=== PATIENT | female | born 1940 | race Caucasian/White ===

== ENCOUNTER 2018-01-14 20:15 | Observation (INO) | payer MEDICARE, OTHER ==
[2018-01-14] MEDS ORDERED: Sodium Chloride 0.9% 10 ML Syringe FLUSH PRN (20:57)
[2018-01-14] MEDS ORDERED: Potassium Chloride 20 MEQ Tab.ER ONE (22:59)
[2018-01-14] MEDS: NS + KCl 20mEq/L 1,000 ML IV SCH (23:00)
--- NOTE | 2018-01-15 00:25 | EDM.PDOC ---
ED HPI GENERAL MEDICAL PROBLEM - General Chief Complaint: Neuro Symptoms/Deficits Stated Complaint: POSSIBLE STROKE Time Seen by Provider: 01/14/18 20:17 Source of Information: Reports: Patient, EMS History Limitations: Reports: No Limitations (At time of evaluation after Head CT she was back to normal mentation.) - History of Present Illness INITIAL COMMENTS - FREE TEXT/NARRATIVE: Patient is a 77 year old woman who was at her home at the [facility] outside of [place]. She was at a friend's house and she felt very hot, flushed and lightheaded and she nearly fainted. She was very weak and they helped her to a chair and called the ambulance to bring her to the ED for evaluation. At first she had some problems speaking and she feels this was from the weakness and lightheadedness. By the time she got to the ED she was doing better. She has never had any pain and she had generalized weakness and she is not sure if she completely fainted or not. She has no neurological deficits, though but she feels weak and she has no pain. She did not feel any palpitations. Onset Date: 01/14/18 Onset Time: 19:00 Duration: Hour(s): (1), Improving Location: Reports: Head, Generalized (Weakness and syncope or near syncope.) Quality: Reports: Other (Never has happened before. She does have low potassium and sodium that her doctor is watching.) Improves with: Reports: None Worsens with: Reports: None Context: Reports: Other (Was standing at her friend's house when this occured and friend helped her to chair and called ambulance.) Associated Symptoms: Reports: Weakness - Related Data Allergies Allergy/AdvReac Type Severity Reaction Status Date / Time cefuroxime [From Ceftin] Allergy Cannot Verified 01/14/18 21:14 Remember Home Meds: Home Meds Lisinopril/Hydrochlorothiazide [Lisinopril-Hctz 20-25 mg Tab] 1 each PO DAILY [History] Social & Family History - Tobacco Use Smoking Status *Q: Current Some Day Smoker Years of Tobacco use: 60 Packs/Tins Daily: 0.2 - Caffeine Use Caffeine Use: Reports: Coffee - Recreational Drug Use Recreational Drug Use: No ED ROS GENERAL - Review of Systems Review Of Systems: See Below Constitutional: Reports: Weakness, Other (She felt very flushed.) HEENT: Reports: No Symptoms Respiratory: Reports: No Symptoms Cardiovascular: Reports: No Symptoms Endocrine: Reports: No Symptoms GI/Abdominal: Reports: No Symptoms : Reports: No Symptoms Musculoskeletal: Reports: No Symptoms Skin: Reports: No Symptoms Neurological: Reports: Syncope, Tingling (She felt hot and had tingling in her legs.), Difficulty Walking, Weakness, Change in Speech Psychiatric: Reports: No Symptoms Hematologic/Lymphatic: Reports: No Symptoms Immunologic: Reports: No Symptoms - Physical Exam Exam: See Below Exam Limited By: No Limitations General Appearance: Alert, WD/WN, No Apparent Distress Eye Exam: Bilateral Eye: EOMI, Normal Fundi, Normal Inspection, PERRL Ears: Normal External Exam, Normal Canal, Hearing Grossly Normal, Normal TMs Nose: Normal Inspection, Normal Mucosa, No Blood Throat/Mouth: Normal Inspection, Normal Lips, Normal Teeth, Normal Gums, Normal Oropharynx, Normal Voice, No Airway Compromise Head Exam: Atraumatic, Normocephalic Neck: Normal Inspection, Supple, Non-Tender, Full Range of Motion Respiratory/Chest: No Respiratory Distress, Lungs Clear, Normal Breath Sounds, No Accessory Muscle Use, Chest Non-Tender Cardiovascular: Normal Peripheral Pulses, Regular Rate, Rhythm, No Edema, No Gallop, No JVD, No Murmur, No Rub GI/Abdominal: Normal Bowel Sounds, Soft, Non-Tender, No Organomegaly, No Distention, No Abnormal Bruit, No Mass Neuro Exam (Abbreviated): Alert, Oriented, CN II-XII Intact, Normal Cognition, Normal Gait, Normal Reflexes, No Motor/Sensory Deficits Back Exam: Normal Inspection, Full Range of Motion, NT Extremities: Normal Inspection, Normal Range of Motion, Non-Tender, No Pedal Edema, Normal Capillary Refill Psychiatric: Normal Affect, Normal Mood Skin Exam: Warm, Dry, Intact, Normal Color, No Rash EKG INTERPRETATION Rhythm: NSR Corinne: Normal P-Wave: Present QRS: Normal ST-T: Other (Nonspecific ST changes.) QT: Normal Comparison: NA - No Prior EKG Course - Vital Signs Text/Narrative:: Patient soon after getting back from Head CT was weak but was speaking normally and other than feeling weak was back to normal. Her labs showed a low sodium and potassium. Her Head CT was negative. She will be put in Observation on Telemetry to make sure she does not have another spell and to watch her heart rhythm for arrhythmias. She will have a BMP tomorrow and Dr. Posada will evaluate if a Doppler US of the Carotids and a 48 hour Holter Monitor should be done. Dr. Posada will round on her in the AM. Last Recorded V/S: Last Vital Signs Temp 36.6 C 01/14/18 23:29 Pulse 71 01/14/18 23:29 Resp 15 01/14/18 23:29 BP 155/52 H 01/14/18 23:29 Pulse Ox 100 01/14/18 23:29 - Orders/Labs/Meds Orders: Active Orders 24 hr Category Date Time Status CXR [Chest 1V Frontal] [CR] Stat Exams 01/14/18 20:57 Taken Head wo Cont [CT] Stat Exams 01/14/18 20:55 Taken Sodium Chloride 0.9% [Saline Flush] Med 01/14/18 20:57 Active 10 ml FLUSH ASDIRECTED PRN Saline Lock Insert [OM.PC] Routine Oth 01/14/18 20:57 Ordered Medication Orders Sodium Chloride (Saline Flush) 10 ml FLUSH ASDIRECTED PRN PRN Reason: Keep Vein Open Labs: Laboratory Tests 01/14/18 01/14/18 Range/Units 21:00 21:00 WBC 9.4 (4.0-11.0) K/uL RBC 3.77 L (3.80-5.80) M/uL Hgb 10.9 L (11.5-16.5) g/dL Hct 31.1 L (37.0-47.0) % MCV 83 (76-96) fL MCH 28.9 (27.0-32.0) pg MCHC 35.0 (31.0-35.0) g/dL RDW 14.2 (11.0-16.0) % Plt Count 369 (150-500) K/uL MPV 8.1 (6.0-10.0) fL Neut % (Auto) 57.5 (45.0-70.0) % Lymph % (Auto) 30.1 (20.0-40.0) % Yancey % (Auto) 11.1 H (3.0-10.0) % Eos % (Auto) 0.9 L (1.0-5.0) % Baso % (Auto) 0.4 (0.0-0.5) % Neut # (Auto) 5.38 (2.00-7.50) K/uL Lymph # (Auto) 2.82 (1.50-4.00) K/uL Yancey # (Auto) 1.04 H (0.20-0.80) K/uL Eos # (Auto) 0.08 (0.04-0.40) K/uL Baso # (Auto) 0.04 (0.02-0.10) K/uL Sodium 128 L (136-145) mmol/L Potassium 3.1 L (3.5-5.1) mmol/L Chloride 90 L (98-107) mmol/L Carbon Dioxide 23.7 (21.0-32.0) mmol/L Anion Gap 17.4 H (5.0-15.0) mmol/L BUN 12 (8-26) mg/dL Creatinine 0.58 (0.55-1.02) mg/dL Est Cr Clr Drug Dosing TNP Estimated GFR (MDRD) > 60 (>60) MLS/MIN BUN/Creatinine Ratio 20.7 (6-25) Glucose 115 H (74-100) mg/dL Calcium 8.6 (8.5-10.1) mg/dL Total Bilirubin 0.3 (0.0-1.0) mg/dL AST 25 (15-37) U/L ALT 25 (12-78) U/L Alkaline Phosphatase 79 (46-116) U/L Troponin I 0.002 (0.000-0.060) ng/mL Total Protein 6.8 (6.4-8.2) g/dL Albumin 3.8 (3.4-5.0) g/dL Globulin 3.0 (2.2-4.2) g/dL Albumin/Globulin Ratio 1.3 (0.8-2.0) Meds: Medications Generic Name Dose Route Start Last Admin Trade Name Freq PRN Reason Stop Dose Admin Sodium Chloride 10 ml 01/14/18 20:57 Saline Flush FLUSH ASDIRECTED PRN Keep Vein Open Discontinued Medications Generic Name Dose Route Start Last Admin Trade Name Freq PRN Reason Stop Dose Admin Potassium Chloride Confirm 01/14/18 22:59 01/14/18 23:00 Klor-Con M20 Administered 01/14/18 23:00 20 meq Dose Administration 20 meq .ROUTE .STK-MED ONE Departure - Departure Time of Disposition: 22:25 Disposition: Refer to Observation Condition: Fair Clinical Impression: Syncope and collapse - Discharge Information - My Orders Last 24 Hours: My Active Orders 01/14/18 20:55 Head wo Cont [CT] Stat 01/14/18 20:57 CXR [Chest 1V Frontal] [CR] Stat Sodium Chloride 0.9% [Saline Flush] 10 ml FLUSH ASDIRECTED PRN Saline Lock Insert [OM.PC] Routine - Assessment/Plan Last 24 Hours: My Active Orders 01/14/18 20:55 Head wo Cont [CT] Stat 01/14/18 20:57 CXR [Chest 1V Frontal] [CR] Stat Sodium Chloride 0.9% [Saline Flush] 10 ml FLUSH ASDIRECTED PRN Saline Lock Insert [OM.PC] Routine
[2018-01-15] MEDS: NS + KCl 20mEq/L 1,000 ML IV SCH (06:47)
--- NOTE | 2018-01-15 07:15 | CT ---
DATE OF SERVICE: 01/14/18 CLINICAL DATA: Syncope and collapse. UNENHANCED BRAIN CT: Multislice acquisition through the brain without IV contrast was performed. No priors. There is diffuse cerebral atrophy. No masses or mass effect. No intracranial hemorrhage. No evidence of acute or subacute infarct. No osseous abnormalities. IMPRESSION: No acute intracranial abnormalities. [id number] [facility]
--- NOTE | 2018-01-15 07:19 | CR ---
DATE OF SERVICE: 01/14/18 CLINICAL DATA: Syncope and collapse. AP PORTABLE CHEST: No priors. The heart size is normal. There is calcification of the aortic arch. The lungs are clear. No evidence of acute intrathoracic disease. [id number] [facility]
[2018-01-15] MEDS ORDERED: HCTZ PO SCH (08:00)
[2018-01-15] MEDS ORDERED: Hydrochlorothiazide 25 MG Tab PO SCH (08:00)
[2018-01-15] MEDS ORDERED: LISINOPRIL PO SCH (08:00)
[2018-01-15] MEDS ORDERED: Lisinopril 20 MG Tab PO SCH (08:00)
--- NOTE | 2018-01-15 15:29 | PCM.DCSUM1 ---
Discharge Summary - Discharge Data Discharge Date: 01/15/18 Discharge Disposition: Home, Self-Care 01 Condition: Good - Discharge Diagnosis/Problem(s) (1) Hyponatremia SNOMED Code(s): 69001483 ICD Code: E87.1 - HYPO-OSMOLALITY AND HYPONATREMIA Status: Chronic Priority: High Current Visit: Yes (2) Hypokalemia SNOMED Code(s): 28443725 ICD Code: E87.6 - HYPOKALEMIA Status: Resolved Priority: High Current Visit: Yes (3) Syncope and collapse SNOMED Code(s): 321677407 ICD Code: R55 - SYNCOPE AND COLLAPSE Status: Resolved Priority: High Current Visit: Yes - Patient Instructions Diet: Heart Healthy Diet Activity: As Tolerated Driving: Do Not Drive - Discharge Plan Home Medications: Home Meds Lisinopril/Hydrochlorothiazide [Lisinopril-Hctz 20-25 mg Tab] 1 each PO DAILY [History] Patient Handouts: Holter Monitoring, Syncope, [id number] Forms: ED Department Discharge Referrals: PCP,None [Primary Care Provider] - - Discharge Summary/Plan Comment DC Time >30 min.: Yes Discharge Summary/Plan Comment: Counseled on current labs and further management and follow up with PCP or here in clinic. Discussed close monitoring of salt intake and supplementation of potassium and f/u post Admit with PCP. Patient agrees with f/u for further workup including Carotid U/S and further possible testing including stress test. We will send with holter monitor and patient will have PCP send medical records request for holter results. Patient will be notified of holter results. Counseled on f/u in ER if symptoms return. - General Info Date of Service: 01/15/18 Subjective Update: Patient states she feels great and would like to be discharged. Patient denies any symptoms or issues at this time. No dizziness or lightheadedness. - Review of Systems General: Reports: No Symptoms HEENT: Reports: No Symptoms Pulmonary: Reports: No Symptoms Cardiovascular: Reports: No Symptoms Gastrointestinal: Reports: No Symptoms Genitourinary: Reports: No Symptoms Musculoskeletal: Reports: No Symptoms Skin: Reports: No Symptoms Neurological: Reports: No Symptoms - Patient Data Vitals - Most Recent: Last Vital Signs Temp 37.1 C 01/15/18 08:00 Pulse 65 01/15/18 08:00 Resp 14 01/15/18 08:00 BP 150/56 H 01/15/18 08:00 Pulse Ox 97 01/15/18 08:00 Weight - Most Recent: 50.893 kg I&O - Last 24 hours: Intake & Output 01/15/18 01/15/18 01/15/18 06:59 14:59 22:59 Output Total 650 Balance -650 Lab Results - Last 24 hrs: Laboratory Results - last 24 hr 01/14/18 01/14/18 01/15/18 Range/Units 21:00 21:00 07:20 WBC 9.4 7.1 D (4.0-11.0) K/uL RBC 3.77 L 3.54 L (3.80-5.80) M/uL Hgb 10.9 L 10.2 L (11.5-16.5) g/dL Hct 31.1 L 29.4 L (37.0-47.0) % MCV 83 83 (76-96) fL MCH 28.9 28.8 (27.0-32.0) pg MCHC 35.0 34.7 (31.0-35.0) g/dL RDW 14.2 14.2 (11.0-16.0) % Plt Count 369 330 (150-500) K/uL MPV 8.1 8.0 (6.0-10.0) fL Neut % (Auto) 57.5 58.2 (45.0-70.0) % Lymph % (Auto) 30.1 26.4 (20.0-40.0) % Tucker % (Auto) 11.1 H 14.6 H (3.0-10.0) % Eos % (Auto) 0.9 L 0.4 L (1.0-5.0) % Baso % (Auto) 0.4 0.4 (0.0-0.5) % Neut # (Auto) 5.38 4.15 (2.00-7.50) K/uL Lymph # (Auto) 2.82 1.88 (1.50-4.00) K/uL Tucker # (Auto) 1.04 H 1.04 H (0.20-0.80) K/uL Eos # (Auto) 0.08 0.03 L (0.04-0.40) K/uL Baso # (Auto) 0.04 0.03 (0.02-0.10) K/uL Sodium 128 L (136-145) mmol/L Potassium 3.1 L (3.5-5.1) mmol/L Chloride 90 L (98-107) mmol/L Carbon Dioxide 23.7 (21.0-32.0) mmol/L Anion Gap 17.4 H (5.0-15.0) mmol/L BUN 12 (8-26) mg/dL Creatinine 0.58 (0.55-1.02) mg/dL Est Cr Clr Drug Dosing TNP Estimated GFR (MDRD) > 60 (>60) MLS/MIN BUN/Creatinine Ratio 20.7 (6-25) Glucose 115 H (74-100) mg/dL Calcium 8.6 (8.5-10.1) mg/dL Total Bilirubin 0.3 (0.0-1.0) mg/dL AST 25 (15-37) U/L ALT 25 (12-78) U/L Alkaline Phosphatase 79 (46-116) U/L Troponin I 0.002 (0.000-0.060) ng/mL Total Protein 6.8 (6.4-8.2) g/dL Albumin 3.8 (3.4-5.0) g/dL Globulin 3.0 (2.2-4.2) g/dL Albumin/Globulin Ratio 1.3 (0.8-2.0) 01/15/18 Range/Units 07:20 WBC (4.0-11.0) K/uL RBC (3.80-5.80) M/uL Hgb (11.5-16.5) g/dL Hct (37.0-47.0) % MCV (76-96) fL MCH (27.0-32.0) pg MCHC (31.0-35.0) g/dL RDW (11.0-16.0) % Plt Count (150-500) K/uL MPV (6.0-10.0) fL Neut % (Auto) (45.0-70.0) % Lymph % (Auto) (20.0-40.0) % Tucker % (Auto) (3.0-10.0) % Eos % (Auto) (1.0-5.0) % Baso % (Auto) (0.0-0.5) % Neut # (Auto) (2.00-7.50) K/uL Lymph # (Auto) (1.50-4.00) K/uL Tucker # (Auto) (0.20-0.80) K/uL Eos # (Auto) (0.04-0.40) K/uL Baso # (Auto) (0.02-0.10) K/uL Sodium 133 L (136-145) mmol/L Potassium 4.1 D (3.5-5.1) mmol/L Chloride 99 (98-107) mmol/L Carbon Dioxide 25.3 (21.0-32.0) mmol/L Anion Gap 12.8 (5.0-15.0) mmol/L BUN 12 (8-26) mg/dL Creatinine 0.47 L (0.55-1.02) mg/dL Est Cr Clr Drug Dosing 70.86 Estimated GFR (MDRD) > 60 (>60) MLS/MIN BUN/Creatinine Ratio 25.5 H (6-25) Glucose 109 H (74-100) mg/dL Calcium 7.8 L (8.5-10.1) mg/dL Total Bilirubin (0.0-1.0) mg/dL AST (15-37) U/L ALT (12-78) U/L Alkaline Phosphatase (46-116) U/L Troponin I (0.000-0.060) ng/mL Total Protein (6.4-8.2) g/dL Albumin (3.4-5.0) g/dL Globulin (2.2-4.2) g/dL Albumin/Globulin Ratio (0.8-2.0) Med Orders - Current: Current Medications Potassium Chloride/Sodium Chloride (Normal Saline With 20 Meq Kcl) 1,000 mls @ 125 mls/hr IV ASDIRECTED DRE Last Admin: 01/15/18 06:47 Dose: 125 mls/hr Lisinopril / Hctz 20 (-25mg Own Med) 1 each PO DAILY DRE Last Admin: 01/15/18 07:53 Dose: 1 each Sodium Chloride (Saline Flush) 10 ml FLUSH ASDIRECTED PRN PRN Reason: Keep Vein Open Discontinued Medications Hydrochlorothiazide (Hydrochlorothiazide) 25 mg PO DAILY DRE Lisinopril (Prinivil) 20 mg PO DAILY DRE Potassium Chloride (Klor-Con M20) Confirm Administered Dose 20 meq .ROUTE .STK- MED ONE Stop: 01/14/18 23:00 Last Admin: 01/14/18 23:00 Dose: 20 meq - Exam General: Reports: Alert, Oriented, Cooperative HEENT: Reports: Pupils Equal, Pupils Reactive, EOMI Lungs: Reports: Clear to Auscultation, Normal Respiratory Effort Cardiovascular: Reports: Regular Rate, Regular Rhythm GI/Abdominal Exam: Normal Bowel Sounds Back Exam: Reports: Normal Inspection Extremities: Normal Inspection Skin: Reports: Warm, Dry, Intact Neurological: Reports: No New Focal Deficit Psy/Mental Status: Reports: Alert, Normal Affect, Normal Mood
== END 2018-01-15 12:30 | disposition home or self-care (01) ==
LOC: LB.ED 20:15 → MERGE 22:25 → UNDOADMOB 22:25 → LB.MS 22:25 → UNDODISOB 01-15 12:30
PROVIDERS: ADMIT Family Medicine; ATTEND Family Medicine
DX: R55 Syncope and collapse (principal); E87.1 Hypo-osmolality and hyponatremia; E87.6 Hypokalemia; F17.200 Nicotine dependence, unspecified, uncomplicated; Z79.899 Other long term (current) drug therapy; Z88.1 Allergy status to other antibiotic agents
CPT/HCPCS: 0296T; 0297T; 36415; 70450; 71045; 80048; 80053; 84484; 85025; 93005; 96360; 96361; 99234; 99285; A0425; A0429; A9270; G0378; J3480